=== PATIENT | male | born 1985 | race Caucasian/White ===

== ENCOUNTER 2025-04-22 12:36 | Emergency (ER) | payer OTHER, SELFPAY ==
[2025-04-22] VITALS (11 sets, daily range): BP systolic 126–158; BP diastolic 64–93; BMI 31.2
[2025-04-22 12:56] LABS: Hematocrit 41.3 % (39.0-52.0); Hemoglobin 14.2 g/dL (13.0-18.0); Mean Corp Hgb Conc. 34.4 g/dL (33.0-37.0); Mean Corpuscular Volume 81.9 fL (80.0-94.0); Nucleated Red Blood Cells % 0 % (-); Platelet Count 275 10^3/uL (130-400); Red Cell Dist. Width 13.3 % (11.5-14.5)
[2025-04-22 13:19] LABS: ALT (SGPT) 57 U/L (0-50); AST (SGOT) 30 U/L (17-59); Albumin 4.8 g/dl (3.5-5.0); Alkaline Phosphatase 69 U/L (38-126); Blood Urea Nitrogen 16 mg/dl (9-20); Calcium 9.7 mg/dl (8.4-10.2); Carbon Dioxide 24 mmol/L (22-30); Chloride 107 mmol/L (98-107); Glucose 98 mg/dl (70-99); Potassium 4.2 mmol/L (3.5-5.1); Sodium 138 mmol/L (135-145); Total Protein 7.4 g/dl (6.3-8.2); eGFR > 60.00
[2025-04-22 13:30] LABS: Troponin I < 0.012 ng/ml
--- NOTE | 2025-04-22 15:03 | ED.GENMED ---
History of Present Illness
General
Chief Complaint: Chest Pain
Source: patient
Exam Limitations: none
Time Seen by Provider: 04/22/25 15:02
History of Present Illness
History of Present Illness:
40yoM with a history of hypertension and prior tobacco use presenting for evaluation of chest pain. Patient reports right sided sharp chest discomfort for the past 24 hours. Pain is worse with deep breathing, movement, and position changes. He
denies any trauma to the area. He has tried Tylenol, ibuprofen, and Pepto-Bismol without any relief. No prior history of similar pains in the past. He denies any cough, vomiting, leg swelling, calf pain, abdominal pain, recent illnesses, recent
travel.
Past History
Past History
ED Past Medical History: None
ED Past Surgical History: None
Social History
Tobacco: Non-smoker
Phy Exam
General Physical Exam
General Presentation: well appearing and no apparent distress
General Skin: warm and dry
General Habitus: normal
General Mental: alert
ENT Exam
ENT Exam: normocephalic
Cardiovascular Exam
Cardiovascular Exam: regular rate/rhythm, no edema and no murmur
Pulmonary Exam
Pulmonary Exam: lungs clear, no respiratory distress, no rales, no crackles, no rhonchi, no wheezing and other (+Point tenderness to the R anterior chest wall. No skin changes.)
Neurological Exam
Neurological Exam: alert
Justin Coma Scale
Eye Opening: Spontaneous
Verbal Response: Oriented
Motor Response: Obeys Commands
GCS Total Score: 15
Skin Exam
Skin Exam: normal color and warm/dry
Psychiatric Exam
Psychiatric Exam: normal mood/affect
Scores
Heart Score for Chest Pain Patients
STEMI patient?: No
History: Slightly or Non-Suspicious
ECG: Normal
Age: </= 45 years
Risk Factors: 1 or 2 Risk Factors
Troponin: </= Normal Limit
Heart Score for Chest Pain Patients: 1
Heart Score Risk: 2.5% MACE over next 6 weeks
Course
Orders/Labs/Results
Orders:
Orders
04/22/25 12:39
EKG [Electrocardiogram (*1)] Urgent
Reason for Study: Chest Pain
EKG- Treatment ONCE
04/22/25 12:49
Complete Blood Count/With Diff Urgent
Comprehensive Metabolic Panel Urgent
Troponin I Urgent
04/22/25 16:03
D-Dimer Urgent
04/22/25 16:39
CR Chest - 2 Views Urgent
Comment:
Reason For Exam: pleuritic R sided chest pain
Abnormal Lab Results
04/22/25
12:49
Lymphocytes % 19.7 L %
(20.5-51.1)
ALT 57 H U/L
(0-50)
04/22/25 12:49
04/22/25 12:49
Vital Signs
Initial and Last Documented VS:
Initial Vital Signs
Temp Pulse Resp BP Pulse Ox
97.6 F 86 16 158/85 98
04/22/25 12:43 04/22/25 12:43 04/22/25 12:43 04/22/25 12:43 04/22/25 12:43
Last Documented Vital Signs
Temp Pulse Resp BP Pulse Ox
97.6 F 77 18 137/82 98
04/22/25 12:43 04/22/25 18:00 04/22/25 18:00 04/22/25 18:00 04/22/25 18:00
MDM/Problems Addressed
Differential Diagnosis Includes:
40yoM here with pleuritic R sided chest pain x 1 day. Also worse with movement. No cough or vomiting. He is mildly hypertensive with otherwise stable vital signs. Oxygen saturation 98% on room air. There is reproducible chest wall tenderness on
exam. Differential diagnosis includes but is not limited to: Musculoskeletal, pleurisy, pneumonia, PE, doubt pneumothorax, doubt ACS
Initial ED plan: Workup initiated in triage. EKG shows normal sinus rhythm with nonspecific ST changes. Troponin within normal limits. Check D-dimer and CXR vs. CT depending on D-dimer results.
*Pulse Oximetry
SaO2: 98
Oxygen Mode of Delivery: Room air
Patient hypoxic: no (98%)
*EKG
Interpreted by ED Provider?: Yes
EKG Intrepretation Date: 04/22/25
Heart Rate: 83
Rate: normal
Rhythm: sinus
[place]: normal axis
Interval: normal interval
QRS Pattern: normal QRS
Ischemia: non-specific ST changes
*Critical Care Note
Total Time (30-74mins, 75-104mins- exclusive of procedures): Not Applicable
Update Note
Update Note:
D-dimer normal making PE very unlikely. Chest x-ray obtained which appears normal per my interpretation. Suspect musculoskeletal pain. Supportive care reviewed. Advised follow-up with PCP. Patient discharged in stable condition.
ED Attending Note
-
Portions of this chart may have been created with voice recognition software.� Occasional wrong word or��sound alike� substitutions may have occurred due to the inherent limitations of voice recognition software.
Discharge Plan
Departure
Patient Disposition: Home (Routine Discharge)
Date of Disposition: 04/22/25
Time of Disposition: 18:08
Patient with high blood pressure during this ER visit?: Yes
Discharge Problem:
Chest pain
Instructions: Chest Pain PCP Follow Up
Prescriptions:
No Action
hydrocodone-acetaminophen 5 MG/500 MG tablet
1 tab PO Q4HPRN PRN (Reason: PAIN) Qty: 20 0RF
psyllium husk [Metamucil Fiber (aspartame)] 1 PACKET powder in packet
1 packet PO DAILY Qty: 10 0RF
Referrals:
Willy Vázquez DO [Family Provider, Family Practice]
Activity Restrictions/Additional Instructions:
Apply heat to affected area. Take ibuprofen 600mg every 6 hours as needed for pain.
Please follow-up with your family doctor in 2-3 days. Return to the ER with any new or worsening symptoms.
Interventions
Interventions:
*Risk Screen - Suicide Last Done: 04/22/25 12:43
*General Assessment Last Done: 04/22/25 16:00
*Neglect/Abuse Screening Last Done: 04/22/25 12:43
*ED- Fall Risk Assessment Last Done: 04/22/25 16:00
*ED COVID-19 Vaccine History Last Done: 04/22/25 16:00
*Nursing Disposition Last Done: 04/22/25 18:17
ED- Cardiac Assessment Last Done: 04/22/25 16:00
Discharge Date and Time
Discharge Date/Time: 04/22/25 18:18
Print Language: CANADIAN
[2025-04-22 16:24] LABS: D-Dimer < 0.27 ug/mlFEU (0.00-0.50)
--- NOTE | 2025-04-22 18:05 | EDRN ---
Brandy ROCA in room w /pt at this time.
== END 2025-04-22 18:18 | disposition home or self-care (01) ==
LOC: EMR 12:36
PROVIDERS: Emergency Medicine; Physician Assistant; EMERGENCY PHYSICIAN Emergency Medicine; FAMILY PHYSICIAN Family Medicine
DX: R07.89 Other chest pain (principal); I10 Essential (primary) hypertension; Z87.891 Personal history of nicotine dependence
CPT/HCPCS: 99285; 71046; 80053; 84484; 85025; 85379; 93005